=== PATIENT | male | born 1985 | race Caucasian/White ===

== ENCOUNTER 2017-08-02 10:46 | Emergency (ER) | payer OTHER ==
[~2017-08-02] VITALS: Ht 180.3 cm; Wt 80.5 kg
[2017-08-02] MEDS ORDERED: ISOVUE-370 76% 100ML VIAL (Q9967) ONE (10:47)
[2017-08-02 12:54] LABS: ANION GAP 8 MEQ/L (8-16); BLOOD UREA NITROGEN 15 MG/DL (7-18); CALCIUM LEVEL 9.1 MG/DL (8.5-10.1); CARBON DIOXIDE LEVEL 27 MEQ/L (21-32); CHLORIDE LEVEL 107 MEQ/L (98-107); GLOMERULAR FILTRATION RATE > 60.0 (>60); GLUCOSE, FASTING 91 MG/DL (70-105); SODIUM LEVEL 142 MEQ/L (136-145)
--- NOTE | 2017-08-02 13:43 | REP ---
CT NECK WITH CONTRAST: HISTORY: Esophageal obstruction. CONTRAST: Isovue-370, 75 mL. Calcifications are present in the tonsils. This is secondary to previous inflammatory disease. The naso-, tom-, and hypopharynx, larynx, and subglottic trachea are otherwise normal in appearance. The salivary and thyroid glands are normal in size and density. Small lymph nodes, less than 1 cm in size are present in the internal jugular chains, posterior triangles, submandibular, and submental areas. Degenerative change is present in the cervical spine. Scarring is present in the lung apices. The visualized sinuses are clear. IMPRESSION: There is no neck mass or adenopathy. Signed by Jaziel Nuno MD 08/02/2017 01:47 P
[2017-08-02 13:47] VITALS: BP 146/77
== END 2017-08-02 13:53 | disposition home or self-care (01) ==
LOC: M ED 10:46 → EDBD 10:46 → M ED 13:53
DX: R13.10 Dysphagia, unspecified (principal); Z91.018 Allergy to other foods
CPT/HCPCS: 70491; 80048; 99283; Q9967